=== PATIENT | male | born 1955 | race Caucasian/White ===

== ENCOUNTER 2021-07-09 09:37 | Outpatient (CLI) | payer OTHER, SELFPAY ==
[2021-07-09 12:10] LABS: ALB/GLOB Ratio 1.3 RATIO (0.9-2.4); AST(SGOT) 36 U/L (15-37); Alanine Aminotransfer ALT/SGPT 58 U/L (16-61); Albumin, Serum 4.1 g/dL (3.2-5.0); Alkaline Phosphatase 77 U/L (45-117); Anion Gap 7 (5-15); BUN 18 mg/dL (7-18); BUN/Creat Ratio 17.3 RATIO (10-20); Calcium,Total 9.2 mg/dL (8.5-10.1); Chloride 106 mmol/L (98-107); Cholesterol 68 mg/dL (200); Creatinine, Serum 1.04 mg/dL (0.70-1.30); EST Glomerular Filtration Rate 76 mL/min (>60); Est Glom Filt Rate - Afr Amer 92 mL/min (>60); Globulin 3.1 g/dL (2.2-4.2); Glucose 297 mg/dL (74-106); High Density Lipoprotein 30 mg/dL; PSA,Total - Annual Screen 0.98 ng/mL (0.00-4.00); Potassium 4.2 mmol/L (3.5-5.1); Protein, Total 7.2 g/dL (6.4-8.2); Sodium Level 139 mmol/L (136-145); Triglycerides 59 mg/dL; Very Low Density Lipoprotein 12 mg/dL (5-40)
== END 2021-07-09 23:59 | disposition home or self-care (01) ==
LOC: MFPLAB 09:39
PROVIDERS: PCP Family Medicine; Referring Provider Family Medicine; Visit Provider Family Medicine
DX: Z00.00 Encounter for general adult medical examination without abnormal findings (principal); Z12.5 Encounter for screening for malignant neoplasm of prostate
CPT/HCPCS: 36415; 80053; 80061; 84153; G0103

== ENCOUNTER 2021-07-19 09:25 | Outpatient (CLI) | payer OTHER, SELFPAY ==
[2021-07-19 10:47] LABS: Hemoglobin A1c 8.3 % (3.8-5.6)
== END 2021-07-19 23:59 | disposition home or self-care (01) ==
LOC: MFPLAB 09:25
PROVIDERS: PCP Family Medicine; Referring Provider Family Medicine; Visit Provider Family Medicine
DX: Z00.00 Encounter for general adult medical examination without abnormal findings (principal); E66.9 Obesity, unspecified; R73.9 Hyperglycemia, unspecified
CPT/HCPCS: 36415; 83036

== ENCOUNTER → 2022-07-11 | Outpatient (CLI) | payer OTHER, MEDICARE, SELFPAY ==
[2022-07-11 10:34] LABS: Hemoglobin A1c 5.4 % (3.8-5.6)
[2022-07-11 10:57] LABS: ALB/GLOB Ratio 1.5 RATIO (0.9-2.4); AST(SGOT) 21 U/L (15-37); Alanine Aminotransfer ALT/SGPT 23 U/L (16-61); Albumin, Serum 4.3 g/dL (3.2-5.0); Alkaline Phosphatase 74 U/L (45-117); Anion Gap 8 (5-15); BUN 19 mg/dL (7-18); BUN/Creat Ratio 23.2 RATIO (10-20); Calcium,Total 9.1 mg/dL (8.5-10.1); Chloride 108 mmol/L (98-107); Cholesterol 78 mg/dL (200); Creatinine, Serum 0.82 mg/dL (0.70-1.30); EST Glomerular Filtration Rate 100 mL/min (>60); Est Glom Filt Rate - Afr Amer 122 mL/min (>60); Globulin 2.8 g/dL (2.2-4.2); Glucose 104 mg/dL (74-106); High Density Lipoprotein 54 mg/dL; Potassium 3.9 mmol/L (3.5-5.1); Protein, Total 7.1 g/dL (6.4-8.2); Sodium Level 143 mmol/L (136-145); Triglycerides 18 mg/dL; Very Low Density Lipoprotein 4 mg/dL (5-40)
== END | disposition home or self-care (01) ==
LOC: MFPLAB 09:44
PROVIDERS: PCP Family Medicine; Visit Provider Family Medicine
DX: Z00.00 Encounter for general adult medical examination without abnormal findings (principal); E88.81 Metabolic syndrome and other insulin resistance
CPT/HCPCS: 36415; 80053; 80061; 83036

== ENCOUNTER 2023-05-09 13:05 | Emergency (ER) | payer OTHER, SELFPAY ==
[2023-05-09 13:07] VITALS: BP 138/82; PULSE 60; RESP 16; TEMP 36.5; O2SAT 95; BMI 24.1
--- NOTE | 2023-05-09 13:54 | EKG12_ITS ---
Test Reason : DIZINESS Blood Pressure : / mmHG Vent. Rate : 060 BPM Atrial Rate : 000 BPM P-R Int : 000 ms QRS Dur : 096 ms QT Int : 444 ms P-R-T Axes : 000 -07 011 degrees QTc Int : 444 ms Sinus Rhythm Abnormal ECG Confirmed by DARRELL MEAD, JC ([id number]), rewrite editor ANN MARIE LUNDBERG ([id number]) on 05/11/2023 10:28:08 AM Referred By: Confirmed By:JC RAMÍREZ MD
--- NOTE | 2023-05-09 14:01 | RAD_ITS ---
STUDY: X-RAY CHEST REASON FOR EXAM: Male, 68 years old. Palpitations TECHNIQUE: Single AP portable view of the chest. COMPARISON: None. FINDINGS: EKG electrodes are seen. Scattered calcified granulomas. The lungs are clear. There is no demonstrated pleural abnormality. Normal size heart. Normal mediastinum and suly. Normal visualized pulmonary arteries. There is atherosclerotic tortuosity of the aortic arch and descending thoracic aorta. There are diffuse degenerative changes of the visualized thoracic spine. Normal visualized ribs, clavicles, and shoulders. There is no demonstrated abnormality of the visualized soft tissue structures of the upper abdomen. RAD/Chest 1 View (Portable) IMPRESSION: Scattered calcified granulomas. The lungs are clear. Electronically Signed: Danyel Max MD at 14:15 EST ,
[2023-05-09 14:10] VITALS: BP 128/77; BP 132/68; BP 133/65; PULSE 64; PULSE 65; PULSE 66
[2023-05-09] MEDS: 0.9% Normal Saline (1000mL) 1,000 ML 1000 ML IV (14:15)
[2023-05-09 14:16] LABS: Absolute Lymphocyte Count 0.82 X10^3/uL (0.83-4.51); Absolute Neutrophil Count 8.8 X10^3/uL (2.0-7.7); Basophil# 0.05 X10^3/uL; Basophil% 0.5 % (0-1); Eosinophil# 0.07 X10^3/uL; Eosinophils% 0.7 % (0-5); Hematocrit 46.8 % (40-54); Hemoglobin 15.8 g/dL (13.0-16.5); Lymphocyte # 0.82 X10^3/ul (0.83-4.51); Lymphocyte % 7.9 % (19-41); Mean Corp Hgb Conc 33.8 g/dL (32-36); Mean Corpuscular Hgb 31.5 pg (27.0-32.0); Mean Corpuscular Volume 93.4 fL (80-94); Mean Platelet Vol. 10.3 fl (6.2-12.0); Monocyte# 0.64 X10^3/uL; Monocyte% 6.1 % (0-10); NRBC Flagged by Analyzer 0 % (0-5); Neutrophil # 8.78 X10^3/uL (2.7-7.7); Neutrophil % 84.3 % (47-70); Platelet Count 127 K/mm3 (150-450); RBC Distribution Width CV 12.1 % (11.6-14.6); RBC Distribution Width SD 41.5 fl (35.1-43.9); Red Blood Count 5.01 M/mm3 (4.6-6.2); White Blood Count 10.4 K/mm3 (4.4-11.0)
--- NOTE | 2023-05-09 14:21 | EX.ED.DYSGE1 ---
HPI <Dr. Duane Haynes DO - Last Filed: 05/09/23 16:05> History of Present Illness Chief Complaint: Dizziness Informant: patient Onset/Context/Timing Onset: Today Context: Sudden Onset Timing: Lasts (Approximately 45 minutes) Quality: Lightheaded Location: Generalized Worsened by: Nothing Relieved by: Nothing Narrative Narrative: Patient presents with dizziness and lightheadedness that began today. Patient states it began rather suddenly. Patient states that began approximately 45 minutes prior to arrival. Patient states it is getting better since he arrived in the emergency department. Patient states he felt lightheaded. Patient denies any spinning sensation. Patient states nothing makes it better nothing makes it worse. Patient admits to some nausea but denies any vomiting. Patient admits to some mild pain in his chest and sensation of his heart racing at times. Patient denies any shortness of breath or cough. PFSH <Dr. Duane Haynes DO - Last Filed: 05/09/23 16:05> [facility] Medical History Diabetes Home Medications NK 05/09/23 [History Last Taken Unknown] Allergy/AdvReac Type Severity Reaction Status Date / Time No Known Allergies Allergy Verified 05/09/23 13:12 Social History Smoking Status: Never smoker ROS <Dr. Duane Haynes DO - Last Filed: 05/09/23 16:05> ROS ED Constitutional Constitutional ED: Denies chills or fever(s) Eyes Eyes: Denies blurry vision or change in vision ENT ENT ED: Denies rhinorrhea or sore throat Cardiovascular Cardiovascular: Reports chest pain and racing heartbeat Respiratory/Chest Respiratory/Chest: Denies cough or dyspnea Gastrointestinal Gastrointestinal: Reports nausea; Denies vomiting Genitourinary Genitourinary ED: Denies dysuria or hematuria Musculoskeletal Musculoskeletal: Denies back pain or neck pain Integumentary Denies abscess or rash Neurologic Neurologic: Reports headache(s); Denies weakness Allergic/Immunologic Allergic/Immunologic ED: Denies mouth swelling or urticaria EXAM <Dr. Duane Haynes DO - Last Filed: 05/09/23 16:05> Physical Exam Const Vital Signs: 05/09/23 13:07 05/09/23 13:13 05/09/23 14:10 Temperature 97.7 F L Temperature Source Oral Pulse Rate 60 Pulse Rate [Lying] 65 Pulse Rate [Sitting (for 1 minute prior to obtaining)] 64 Pulse Rate [Standing (for 1 minute prior to obtaining)] 66 Respiratory Rate 16 Respiratory Effort Normal Blood Pressure 138/82 H Blood Pressure [Lying] 133/65 H Blood Pressure [Sitting (for 1 minute prior to obtaining)] 132/68 H Blood Pressure [Standing (for 1 minute prior to obtaining)] 128/77 H Blood Pressure Mean 100 Blood Pressure Mean [Lying] 87 Blood Pressure Mean [Sitting (for 1 minute prior to obtaining)] 89 Blood Pressure Mean [Standing (for 1 minute prior to obtaining)] 94 Pulse Ox 95 Oxygen Delivery Method 05/09/23 15:07 05/09/23 16:25 05/09/23 17:29 Temperature Temperature Source Pulse Rate 63 58 L 68 Pulse Rate [Lying] Pulse Rate [Sitting (for 1 minute prior to obtaining)] Pulse Rate [Standing (for 1 minute prior to obtaining)] Respiratory Rate 19 H 16 15 Respiratory Effort Blood Pressure 121/64 H 116/70 132/77 H Blood Pressure [Lying] Blood Pressure [Sitting (for 1 minute prior to obtaining)] Blood Pressure [Standing (for 1 minute prior to obtaining)] Blood Pressure Mean 83 85 95 Blood Pressure Mean [Lying] Blood Pressure Mean [Sitting (for 1 minute prior to obtaining)] Blood Pressure Mean [Standing (for 1 minute prior to obtaining)] Pulse Ox 95 95 98 Oxygen Delivery Method Room Air Positive well nourished and well developed General Appearance ED: well developed and NAD HEENT Reports moist mucous membranes Neck supple and no JVD Chest Wall inspection of chest normal Resp normal respiratory effort and clear to auscultation bilaterally Cardio regular rate and regular rhythm GI non-tender and non-distended Palpation: soft Neuro oriented x3, CN's II-XII intact bilaterally and no sensory deficits noted Sensorium / Orientation: alert Motor Exam: strength 5/5 throughout Psych mental status grossly normal <Dr. Judd Gutierrez, DO - Last Filed: 05/09/23 22:08> Physical Exam Const Vital Signs: 05/09/23 13:07 05/09/23 13:13 05/09/23 14:10 Temperature 97.7 F L Temperature Source Oral Pulse Rate 60 Pulse Rate [Lying] 65 Pulse Rate [Sitting (for 1 minute prior to obtaining)] 64 Pulse Rate [Standing (for 1 minute prior to obtaining)] 66 Respiratory Rate 16 Respiratory Effort Normal Blood Pressure 138/82 H Blood Pressure [Lying] 133/65 H Blood Pressure [Sitting (for 1 minute prior to obtaining)] 132/68 H Blood Pressure [Standing (for 1 minute prior to obtaining)] 128/77 H Blood Pressure Mean 100 Blood Pressure Mean [Lying] 87 Blood Pressure Mean [Sitting (for 1 minute prior to obtaining)] 89 Blood Pressure Mean [Standing (for 1 minute prior to obtaining)] 94 Pulse Ox 95 Oxygen Delivery Method 05/09/23 15:07 05/09/23 16:25 05/09/23 17:29 Temperature Temperature Source Pulse Rate 63 58 L 68 Pulse Rate [Lying] Pulse Rate [Sitting (for 1 minute prior to obtaining)] Pulse Rate [Standing (for 1 minute prior to obtaining)] Respiratory Rate 19 H 16 15 Respiratory Effort Blood Pressure 121/64 H 116/70 132/77 H Blood Pressure [Lying] Blood Pressure [Sitting (for 1 minute prior to obtaining)] Blood Pressure [Standing (for 1 minute prior to obtaining)] Blood Pressure Mean 83 85 95 Blood Pressure Mean [Lying] Blood Pressure Mean [Sitting (for 1 minute prior to obtaining)] Blood Pressure Mean [Standing (for 1 minute prior to obtaining)] Pulse Ox 95 95 98 Oxygen Delivery Method Room Air [facility] <Dr. Duane Haynes, DO - Last Filed: 05/09/23 16:05> [facility] Narrative Medical decision making narrative: Differential diagnosis includes cardiac dysrhythmia, cardiac ischemia, electrolyte abnormality, dehydration, pneumonia, pneumothorax, pulmonary embolism, viral illness, COVID-19 infection, and influenza infection. EKG will be obtained to assess for cardiac dysrhythmia and cardiac ischemia. Chest x-ray will be obtained to assess for pneumonia and pneumothorax. CBC will be obtained to assess for leukocytosis and anemia. Basic metabolic profile will be obtained to assess for electrolyte abnormality and renal function. High-sensitivity troponin will be obtained to assess for cardiac ischemia. 2-hour repeat high-sensitivity troponin will be obtained to assess for ongoing cardiac ischemia. PT with INR and PTT will be obtained to assess for coagulopathy. D-dimer will be obtained to assess for pulmonary embolism. Lab Data Lab results narrative: CBC was reviewed and was within normal limits. Basic metabolic profile was reviewed and was essentially within normal limits. PT with INR and PTT were reviewed. D-dimer was reviewed and was normal at less than 0.27. High-sensitivity troponin was reviewed and was normal at 5. COVID-19 rapid antigen was reviewed and was negative. Influenza A and influenza B antigens were reviewed and were negative. Urinalysis was reviewed and does not show any evidence of urinary tract infection or hematuria. COVID-19 rapid antigen was reviewed and was negative. Influenza A and influenza B antigens were reviewed and were negative. Labs: Laboratory Results - last 24 hr 05/09/23 05/09/23 05/09/23 13:20 14:51 16:24 WBC 10.4 RBC 5.01 Hgb 15.8 Hct 46.8 MCV 93.4 MCH 31.5 MCHC 33.8 RDW Std Deviation 41.5 RDW Coeff of Fadia 12.1 Plt Count 127 L MPV 10.3 Immature Gran % (Auto) 0.500 Neut % (Auto) 84.3 H Lymph % (Auto) 7.9 L [place] % (Auto) 6.1 Eos % (Auto) 0.7 Baso % (Auto) 0.5 Absolute Neuts (auto) 8.8 H Absolute Lymphs (auto) 0.82 L Nucleated RBC % 0 PT 13.7 INR 1.1 APTT 26.3 D-Dimer Quant (PE/DVT) < 0.27 L Sodium 142 Potassium 3.8 Chloride 108 H Carbon Dioxide 29.0 Anion Gap 5 BUN 20 H Creatinine 1.04 Estim Creat Clear Calc 67.60 Est GFR (MDRD) Af Amer 92 Est GFR (MDRD) Non-Af 76 BUN/Creatinine Ratio 19.2 Glucose 139 H Calcium 9.3 Troponin I High Sens 5 7 Urine Color Yellow Urine Clarity Clear Urine pH 6.5 Ur Specific [place] 1.015 Urine Protein 15 H Urine Glucose (UA) Normal Urine Ketones Negative Urine Occult Blood Negative Urine Nitrite Negative Urine Bilirubin Negative Urine Urobilinogen Normal Ur Leukocyte Esterase Negative Urine RBC 0 SEEN Urine WBC 0 SEEN Ur Squamous Epith Cells 0 SEEN Urine Bacteria 0 SEEN Urine Mucus 0 SEEN Radiography Chest X-Ray - ED: 1 View, Read by ED Physician, Read by Radiologist and No Acute Disease Diagnostic Testing: Clinical Impression(s) from Imaging Studies Chest X-Ray 05/09/23 14:01 IMPRESSION: Scattered calcified granulomas. The lungs are clear. Electronically Signed: Danyel Max MD at 14:15 EST , Portable 1 view chest x-ray was obtained. On my independent interpretation, lung leyva show scattered calcified granulomas but are otherwise clear. There is normal cardiac silhouette. Bony thorax is normal. There is no acute process noted. Radiologist also interpreted the x-ray and agrees. EKG Initial EKG: Attestation: I personally reviewed and interpreted this EKG as follows: Interpretation: Sinus Rhythm (60) and No Acute Injury Pattern Comments: EKG was obtained. On my independent interpretation, it showed a normal sinus rhythm with a rate of 60. CO interval, QRS interval, and QTc intervals were all normal. Dixon was normal. There are no acute ST or T wave changes. Prior EKG tracings: not available for review Prior: No Prior Treatment and Re-Evaluation :: Since the patient was feeling better upon arrival to the emergency department, patient was not medicated with anything at this time. Patient was advised of his findings. Care of the patient will be turned over the oncoming physician pending delta troponin. If the delta troponin is still negative, the patient will be able to be discharged home with follow-up with his primary care physician in 5 to 7 days. If the delta troponin is positive, the patient will need to be admitted. Patient understands this and is agreeable with the plan. All questions were answered. <Dr. Judd Gutierrez, DO - Last Filed: 05/09/23 22:08> [facility] Lab Data Lab results narrative: CBC was reviewed and was within normal limits. Basic metabolic profile was reviewed and was essentially within normal limits. PT with INR and PTT were reviewed. D-dimer was reviewed and was normal at less than 0.27. High-sensitivity troponin was reviewed and was normal at 5. COVID-19 rapid antigen was reviewed and was negative. Influenza A and influenza B antigens were reviewed and were negative. Urinalysis was reviewed and does not show any evidence of urinary tract infection or hematuria. COVID-19 rapid antigen was reviewed and was negative. Influenza A and influenza B antigens were reviewed and were negative. 1710: Brenda. Patient signed out to me follow-up on repeat troponin. Results negative. He was ambulated in the room no return of symptoms. He had near syncopal symptoms prior to arrival. Cardiac workup D-dimer negative. No cardiac dysrhythmia on EKG. Patient will follow-up with his PCP with strict return precautions patient will since. Labs: Laboratory Results - last 24 hr 05/09/23 05/09/23 05/09/23 13:20 14:51 16:24 WBC 10.4 RBC 5.01 Hgb 15.8 Hct 46.8 MCV 93.4 MCH 31.5 MCHC 33.8 RDW Std Deviation 41.5 RDW Coeff of Fadia 12.1 Plt Count 127 L MPV 10.3 Immature Gran % (Auto) 0.500 Neut % (Auto) 84.3 H Lymph % (Auto) 7.9 L [place] % (Auto) 6.1 Eos % (Auto) 0.7 Baso % (Auto) 0.5 Absolute Neuts (auto) 8.8 H Absolute Lymphs (auto) 0.82 L Nucleated RBC % 0 PT 13.7 INR 1.1 APTT 26.3 D-Dimer Quant (PE/DVT) < 0.27 L Sodium 142 Potassium 3.8 Chloride 108 H Carbon Dioxide 29.0 Anion Gap 5 BUN 20 H Creatinine 1.04 Estim Creat Clear Calc 67.60 Est GFR (MDRD) Af Amer 92 Est GFR (MDRD) Non-Af 76 BUN/Creatinine Ratio 19.2 Glucose 139 H Calcium 9.3 Troponin I High Sens 5 7 Urine Color Yellow Urine Clarity Clear Urine pH 6.5 Ur Specific [place] 1.015 Urine Protein 15 H Urine Glucose (UA) Normal Urine Ketones Negative Urine Occult Blood Negative Urine Nitrite Negative Urine Bilirubin Negative Urine Urobilinogen Normal Ur Leukocyte Esterase Negative Urine RBC 0 SEEN Urine WBC 0 SEEN Ur Squamous Epith Cells 0 SEEN Urine Bacteria 0 SEEN Urine Mucus 0 SEEN Radiography Diagnostic Testing: Clinical Impression(s) from Imaging Studies Chest X-Ray 05/09/23 14:01 IMPRESSION: Scattered calcified granulomas. The lungs are clear. Electronically Signed: Danyel Max MD at 14:15 EST , Discharge Plan Triage Chief Complaint: Dizziness ED Provider: Duane Haynes Dx/Rx/DC Orders Clinical Impression: Palpitations, Dizziness, Atypical chest pain Instructions: ED Chest Pain, Uncertain Cause, ED Near-Fainting, Uncertain Cause Prescriptions: No Action NK Primary Care Provider: Duane Wayne Referrals: Duane Wayne MD [Primary Care Provider] - 3-5 Days Activity Restrictions/Additional Instructions: Cardiac, negative D-dimer negative. Follow-up with your doctor for reevaluation further testing as needed and outpatient. Return if any recurrent or worsening symptoms. Disposition Disposition: Home, Self Care Discharge Date/Time: 05/09/23 17:31
[2023-05-09 14:35] LABS: Anion Gap 5 (5-15); BUN 20 mg/dL (7-18); BUN/Creat Ratio 19.2 RATIO (10-20); Calcium,Total 9.3 mg/dL (8.5-10.1); Chloride 108 mmol/L (98-107); Creatinine, Serum 1.04 mg/dL (0.70-1.30); EST Glomerular Filtration Rate 76 mL/min (>60); Est Glom Filt Rate - Afr Amer 92 mL/min (>60); Glucose 139 mg/dL (74-106); Potassium 3.8 mmol/L (3.5-5.1); Sodium Level 142 mmol/L (136-145); Troponin-I HS (w/2H Reflex) 5 pg/mL (3.0-78.0)
[2023-05-09 14:51] LABS: D-Dimer Quantitative (DVT/PE) < 0.27 FEU/ug/m (0.27-0.49)
[2023-05-09 14:57] LABS: International Normalized Ratio 1.1; Prothrombin Time (Protime)PT. 13.7 SECONDS (11.7-14.9)
[2023-05-09 14:57] LABS: Bacteria 0 SEEN /hpf (None Seen); Mucous, Urine 0 SEEN /hpf (<or=2+); Red Blood Cells-Urine 0 SEEN /hpf (0-5); Squamous Epithelial Cells - UA 0 SEEN /hpf (0-5); White Blood Cells 0 SEEN /hpf (0-5)
[2023-05-09 14:58] LABS: Partial Thromboplast Time 26.3 Seconds (24.1-36.2)
[2023-05-09 15:07] VITALS: BP 121/64; PULSE 63; RESP 19; O2SAT 95
[2023-05-09 15:07] LABS: Color, Urine Yellow (Yellow); Glucose, Dipstick Normal (Normal); Ketone-Dipstick Negative (Negative); Leukocyte Esterase-Dipstick Negative /ul (Negative); Nitrite-Dipstick Negative (Negative); Occult Blood-Urine Negative /ul (Negative); Protein-Dipstick 15 mg/dl (Negative); Specific Gravity, Urine 1.015 (1.002-1.030); Urine Bilirubin Dipstick Negative (Negative); Urine Clarity Clear (Clear); Urine Urobilinogen Normal (Normal); Urine pH 6.5 (5.0 - 8.0)
[2023-05-09 16:19] LABS: Reflex Troponin-HS? (from REC) Y
[2023-05-09 16:25] VITALS: BP 116/70; PULSE 58; RESP 16; O2SAT 95
[2023-05-09 16:58] LABS: Troponin-I HS 7 pg/mL (3.0-78.0)
[2023-05-09 17:29] VITALS: BP 132/77; PULSE 68; RESP 15; O2SAT 98
== END 2023-05-09 17:31 | disposition home or self-care (01) ==
PROVIDERS: Emergency Provider Emergency Medicine; PCP Family Medicine; Visit Provider Emergency Medicine
DX: R00.2 Palpitations (principal); E11.9 Type 2 diabetes mellitus without complications; R42 Dizziness and giddiness; R07.89 Other chest pain
CPT/HCPCS: 71045; 80048; 81001; 84484; 85025; 85379; 85610; 85730; 87428; 93005; 96360; 99285; A4216

== ENCOUNTER → 2023-08-23 | Outpatient (CLI) | payer OTHER, MEDICARE, SELFPAY ==
[2023-08-23 12:41] LABS: Hemoglobin A1c 5.4 % (3.8-5.6)
[2023-08-23 12:56] LABS: ALB/GLOB Ratio 1.4 RATIO (0.9-2.4); AST(SGOT) 20 U/L (15-37); Alanine Aminotransfer ALT/SGPT 25 U/L (16-61); Alkaline Phosphatase 67 U/L (45-117); Anion Gap 1 (5-15); BUN 19 mg/dL (7-18); BUN/Creat Ratio 21.3 RATIO (10-20); Calcium,Total 8.8 mg/dL (8.5-10.1); Chloride 110 mmol/L (98-107); Creatinine, Serum 0.89 mg/dL (0.70-1.30); EST Glomerular Filtration Rate 90 mL/min (>60); Est Glom Filt Rate - Afr Amer 109 mL/min (>60); Globulin 2.8 g/dL (2.2-4.2); Glucose 96 mg/dL (74-106); Potassium 4.1 mmol/L (3.5-5.1); Protein, Total 6.8 g/dL (6.4-8.2); Sodium Level 142 mmol/L (136-145)
== END | disposition home or self-care (01) ==
LOC: MFPLAB 09:24
PROVIDERS: PCP Family Medicine; Visit Provider Family Medicine
DX: Z00.01 Encounter for general adult medical examination with abnormal findings (principal); E88.810 Metabolic syndrome
CPT/HCPCS: 36415; 80053; 83036

== ENCOUNTER → 2023-11-17 | Outpatient (CLI) | payer OTHER, MEDICARE, SELFPAY ==
--- NOTE | 2023-11-17 17:30 | CT_ITS ---
INDICATION: Headache, anisocoria EXAMINATION: CT BRAIN WITH CONTRAST TECHNIQUE: Noncontrast axial images were obtained of the brain. Subsequently, routine carotid CT angiogram protocol was performed without and with IV contrast. In addition, images were obtained of the [place]. NASCET criteria using the distal ICAs for comparison were used for evaluation of stenoses. 3D reconstructions were reviewed. A radiation dose optimization technique was used for this scan. IV Contrast dosage and agent: 100 cc [id number] COMPARISON: None. FINDINGS: --CT BRAIN: BRAIN PARENCHYMA: No intra- or extra-axial hemorrhage. No evidence of acute infarct. No intracranial mass or mass effect. There is preservation of the khan/white matter interface. Posterior fossa structures are unremarkable. CSF SPACES: Appropriate for age. No hydrocephalus. Basal cisterns are patent. CALVARIUM, SKULL BASE, PARANASAL SINUSES AND MASTOID AIR CELLS: Scattered mucoperiosteal thickening. No discrete lytic or blastic abnormalities. --CTA NECK: AORTIC ARCH AND BRANCHES: Vessel origins patent. RIGHT CCA: No occlusion, significant stenosis or dissection. RIGHT ICA: No occlusion, significant stenosis or dissection. LEFT CCA: No occlusion, significant stenosis or dissection. LEFT ICA: No occlusion, significant stenosis or dissection. RIGHT VERTEBRAL ARTERY: No occlusion, significant stenosis or dissection. LEFT VERTEBRAL ARTERY: No occlusion, significant stenosis or dissection. NECK SOFT TISSUES: Unremarkable. --CTA HEAD: --Anterior circulation: ICAs: No significant stenosis at the intracranial/visualized segments. ACAs: No significant stenosis at the visualized segments. ACOM: Present. MCAs: No significant stenosis at the visualized segments. --Posterior circulation: PCOMs: Not seen. auto damage estimator: No significant stenosis at the visualized segments. origin right [employer]ER. BASILAR ARTERY: No significant stenosis. VERTEBRAL ARTERIES: No significant stenosis at the intradural/visualized segments. No evidence of intracranial aneurysm or vascular malformation. CT/CTA Head AND Neck W/ Contrast IMPRESSION: Negative CT Brain, CTA Carotid, and CTA Brain. Electronically Signed: Cuong Montague MD at 19:31 EDT ,
[2023-11-17 17:49] LABS: CREATININE FINGERSTICK 1.1 mg/dL (0.70-1.30); EGFR FINGERSTICK > 60.0000 mL/min (>60)
[2023-11-17 18:03] LABS: Creatinine, Serum 1.07 mg/dL (0.70-1.30); EST Glomerular Filtration Rate 73 mL/min (>60); Est Glom Filt Rate - Afr Amer 89 mL/min (>60)
== END | disposition home or self-care (01) ==
PROVIDERS: PCP Family Medicine; Referring Provider Ophthalmology; Visit Provider Ophthalmology
DX: Z01.812 Encounter for preprocedural laboratory examination (principal); H57.02 Anisocoria; R51.9 Headache, unspecified
CPT/HCPCS: 36415; 70496; 70498; 82565; Q9967

== ENCOUNTER → 2023-11-21 | Outpatient (CLI) | payer MEDICARE, SELFPAY ==
[2023-11-21 10:21] LABS: Erythrocyte Sedimentation Rate < 1 mm/hr (0-20)
[2023-11-21 10:52] LABS: CRP < 2.90 mg/L (0.0-3.0)
== END | disposition home or self-care (01) ==
LOC: MTLAB 07:50
PROVIDERS: PCP Family Medicine; Referring Provider Family Medicine; Visit Provider Family Medicine
DX: R51.9 Headache, unspecified (principal)
CPT/HCPCS: 36415; 85652; 86140

== ENCOUNTER → 2024-08-22 | Outpatient (CLI) | payer MEDICARE, SELFPAY ==
[2024-08-22 10:49] LABS: Absolute Lymphocyte Count 1.01 X10^3/uL (0.83-4.51); Absolute Neutrophil Count 4.1 X10^3/uL (2.0-7.7); Basophil# 0.04 X10^3/uL; Basophil% 0.7 % (0-1); Eosinophil# 0.16 X10^3/uL; Eosinophils% 2.7 % (0-5); Hematocrit 47.2 % (40-54); Hemoglobin 16.1 g/dL (13.0-16.5); Lymphocyte # 1.01 X10^3/ul (0.83-4.51); Lymphocyte % 17.1 % (19-41); Mean Corp Hgb Conc 34.1 g/dL (32-36); Mean Corpuscular Hgb 31.1 pg (27.0-32.0); Mean Corpuscular Volume 91.3 fL (80-94); Mean Platelet Vol. 10.1 fl (6.2-12.0); Monocyte# 0.54 X10^3/uL; Monocyte% 9.2 % (0-10); NRBC Flagged by Analyzer 0 % (0-5); Neutrophil # 4.13 X10^3/uL (2.7-7.7); Platelet Count 133 K/mm3 (150-450); RBC Distribution Width SD 40.1 fl (35.1-43.9); Red Blood Count 5.17 M/mm3 (4.6-6.2); White Blood Count 5.9 K/mm3 (4.4-11.0)
[2024-08-22 12:04] LABS: AST(SGOT) 28 U/L (<=37); Alanine Aminotransfer ALT/SGPT 22 U/L (<=46); Albumin, Serum 4.8 g/dL (3.4-4.8); Alkaline Phosphatase 64 U/L (40-129); Anion Gap 12 (5-15); BUN 20 mg/dL (4-19); BUN/Creat Ratio 20.2 RATIO (10-20); Calcium,Total 9.6 mg/dL (7.6-11.0); Carbon Dioxide 24.3 mmol/L (21.0-32.0); Chloride 105 mmol/L (98-108); Cholesterol 78 mg/dL (<=200); Creatinine, Serum 0.98 mg/dL (0.70-1.20); EST Glomerular Filtration Rate 85 (>60); Globulin 2.4 g/dL (2.2-4.2); Glucose 98 mg/dL (70-99); High Density Lipoprotein 45 mg/dL; Low Density Lipoprotein Calc. 29 mg/dL; PSA,Total - Annual Screen 1.54 ng/mL (0.02-4.00); Potassium 4.3 mmol/L (3.3-5.1); Protein, Total 7.2 g/dL (5.9-8.4); Sodium Level 142 mmol/L (133-145); Triglycerides 19 mg/dL; Very Low Density Lipoprotein 4 mg/dL (5-40); cholesterol:hdl ratio screen 1.74
[2024-08-22 15:09] LABS: Microalbumin:Creatinine Ratio 73.9 mg/g CRE
[2024-08-22 16:15] LABS: Hemoglobin A1c 5.7 % (<=5.6)
== END | disposition home or self-care (01) ==
LOC: MTLAB 09:25
PROVIDERS: PCP Family Medicine; Referring Provider Family Medicine; Visit Provider Family Medicine
DX: E88.810 Metabolic syndrome (principal); Z12.5 Encounter for screening for malignant neoplasm of prostate
CPT/HCPCS: 36415; 80053; 80061; 82043; 82570; 83036; 84153; 85025; G0103